=== PATIENT | female | born 1945 | race Caucasian/White ===

== ENCOUNTER 2017-06-26 10:50 | Outpatient (CLI) | payer MEDICARE, OTHER ==
[~2017-06-26 10:50] MED LIST: ASPIRIN-LOW81 MG ORAL; DIOVAN HCT 80-1 EACH ORAL; DIOVAN40 MG ORAL; LIPITOR20 MG ORAL; MULTIVITAMINS1 EAC2 ORAL; SYNTHROID50 MCG ORAL; TENORMIN25 MG ORAL
--- NOTE | 2017-06-26 11:50 | GI Progress Note ---
Assessment/Plan Problems: (1) Colonoscopy planned SNOMED: 911791690 (2) HTN (hypertension) ICD Codes: I10 - Essential (primary) hypertension SNOMED: 36646863 (3) Hypothyroidism ICD Codes: E03.9 - Hypothyroidism, unspecified SNOMED: 67209810 (4) HLD (hyperlipidemia) ICD Codes: E78.5 - Hyperlipidemia, unspecified SNOMED: 03525637 Status: stable Status Narrative Seen with Dr. Grullon. Assessment/Plan EGD/colonoscopy scheduled 07/09/17 - CLD & (Nulytely/Suprep/Movi-Prep) prep instructions given and acknowledged by patient. - NPO @ [place] day prior procedure explained. Labs to be drawn day of procedure >> CEA, CBC, Iron Panel, CA 19-9 Subjective Subjective weight loss of 8 lbs over 6-7 months Hx of elevated amylase appetite is good PCP had labs done April 2017 Breast CA 2015 s/p surgery denies N/V no severe constipation, has loose stools PCP is Dr. Moore, Dr. Bustos Objective T 98.1 BP 153/80 P 93 95 RA WT 117lbs General Appearance: WD/WN, no apparent distress, alert Cardiovascular: normal rate Respiratory/Chest: normal breath sounds, no respiratory distress Abdominal Exam: normal bowel sounds, non tender, soft Extremities: normal range of motion, non-tender Mabel Bonilla N.P. Jun 26, 2017 11:50
== END 2017-06-26 11:25 | disposition home or self-care (01) ==
LOC: PAN 10:50
DX: I10 Essential (primary) hypertension (principal); E03.9 Hypothyroidism, unspecified; E78.5 Hyperlipidemia, unspecified; R63.4 Abnormal weight loss; Z85.3 Personal history of malignant neoplasm of breast
CPT/HCPCS: 99212; 99285

== ENCOUNTER 2017-07-09 08:03 | Day surgery (SDC) | payer MEDICARE, OTHER ==
[~2017-07-09] VITALS: Ht 152.4 cm; Wt 53.5 kg
[2017-07-09] VITALS (10 sets, daily range): BP systolic 126–155; BP diastolic 69–86
--- NOTE | 2017-07-09 07:00 | Anethesia Preoperative Eval ---
Anesthesia Pre-op PMH/ROS General Date of Evaluation: Jul 09, 2017 Time of Evaluation: 06:58 Anesthesiologist: corky ASA Score: ASA 3 Mallampati Score Class I : Soft palate, uvula, fauces, pillars visible Class II: Soft palate, uvula, fauces visible Class III: Soft palate, base of uvula visible Class IV: Only hard plate visible Mallampati Classification: Class II Surgeon: ziyad Diagnosis: weight loss, r/o cancer Surgical Procedure: egd/ colonoscopy Anesthesia History: none Social History: smoking - nonsmoker Family History: no anesthesia problems Allergies: Coded Allergies: PENICILLINS (Verified Allergy, Severe, RASH, 03/28/13) ACETAMINOPHEN (Verified Adverse Reaction, Severe, NAUSEA, 03/28/13) HYDROCODONE (Verified Adverse Reaction, Severe, NAUSEA, 03/28/13) Past Medical History Cardiovascular: Reports: HTN, other - hypercholesterolemia Gastrointestinal/Genitourinary: Reports: other Neurologic/Psychiatric: Reports: depression/anxiety, other - poliomyelitis Endocrine: Reports: DM, hypothyroidism Anesthesia Pre-op Phys. Exam Physician Exam Constitutional: NAD Neurologic: CN 2-12 intact Cardiovascular: RRR Respiratory: CTA Gastrointestinal: S/NT/ND Airway Exam Mallampati Score: Class II MO: full Neck: short TMD: 2fb ROM: limited Anesthesia Pre-op A/P Risk Assessment & Plan Assessment: asa3 Plan: mac Status Change Before Surgery: No Pre-Antibiotics Drug: RUKHSANA Burnette Jul 09, 2017 07:00
[~2017-07-09 08:03] MED LIST changes: +Atropine Inj 1mg/10ml Syr IV PRN; +DiphenhydrAMINE 50mg/ml Inj IVP PRN; +Midazolam 2mg/2ml Inj IVP PRN; +fentaNYL 100 mcg/2 mL IV PRN
[2017-07-09] MEDS ORDERED: VITAMIN D2000 UNI2 PO (09:08)
[2017-07-09] MEDS ORDERED: DIOVAN40 MG ORAL (09:08)
[2017-07-09] MEDS ORDERED: ASPIR 8181 MG ORAL (09:08)
[2017-07-09] MEDS ORDERED: VITAMIN B COMP1 EAC2 ORAL (09:08)
--- NOTE | 2017-07-09 09:42 | Pre-Procedure Note/Attestation ---
Pre-Procedure Note/Attestation Complete Prior to Procedure Planned Procedure: not applicable Procedure Narrative: esophagogastroduodenoscopy and colonoscopy Indications for Procedure Pre-Operative Diagnosis: wt loss Attestation I attest that I discussed the nature of the procedure; its benefits; risks and complications; and alternatives (and the risks and benefits of such alternatives ), prior to the procedure, with the patient (or the patient's legal field sales representative). I attest that, if there was a reasonable possibility of needing a blood transfusion, the patient (or the patient's legal field sales representative) was given the [facility] standardized written summary, pursuant to the David Kellogg Blood Safety Act ([place] Health and Safety Code # 1645, as amended). I attest that I re-evaluated the patient just prior to the surgery and that there has been no change in the patient's H&P, except as documented below: JARED MCKEON Jul 09, 2017 09:42
--- NOTE | 2017-07-09 09:43 | Short Stay Surgery H&P ---
History of Present Illness History of Present Illness Chief Complaint see recent clinic consult note HPI Dana Correa is a 72 year old female who was admitted on for Weight Lose,R /O Cancer Patient History Allergies: Coded Allergies: PENICILLINS (Verified Allergy, Severe, RASH, 03/28/13) ACETAMINOPHEN (Verified Adverse Reaction, Severe, NAUSEA, 03/28/13) HYDROCODONE (Verified Adverse Reaction, Severe, NAUSEA, 03/28/13) PAST MEDICAL HISTORY: Past Surgeries: Social History: Medication History Scheduled Aspirin* (Aspir 81*), 81 MG ORAL DAILY, (Reported) Atenolol (Tenormin), 25 MG ORAL DAILY, (Reported) Atorvastatin Calcium* (Lipitor*), 20 MG ORAL BEDTIME, (Reported) Cholecalciferol (Vitamin D3) (Vitamin D), 2,000 UNIT PO DAILY, (Reported) Levothyroxine Sodium (Synthroid), 75 MCG ORAL DAILY, (Reported) Valsartan (Diovan), 40 MG ORAL DAILY, (Reported) Vitamin B Complex (Vitamin B Complex), 1 CAP ORAL DAILY, (Reported) Physical Exam Vital Signs Last Vital Signs Date Time Temp Pulse Resp B/P (MAP) Pulse Ox O2 Delivery O2 Flow Rate FiO2 07/09/17 09:26 98.6 70 16 144/75 95 Room Air Plan Attestation Are the patient's medical conditions optimized for surgery? JARED MCKEON Jul 09, 2017 09:43
[2017-07-09] MEDS ORDERED: Lidocaine 1% MPF 10mg/ml 5ml ONE (10:00)
[2017-07-09] MEDS ORDERED: LR 1000ml ONE (10:00)
[2017-07-09] MEDS ORDERED: Atropine Sulfate 0.4mg/ml inj ONE (10:00)
[2017-07-09] MEDS ORDERED: Propofol 200mg/20ml IV ONE (10:00)
--- NOTE | 2017-07-09 10:28 | Endoscopy Procedure Note ---
Endoscopy Procedure Note General Indication for Procedure: wt loss Procedures Performed: EGD, colonoscopy Operative Findings/Diagnosis: gastritis, diverticulosis Specimen: yes Pt Tolerated Procedure Well: Yes Estimated Blood Loss: none Anesthesia Anesthesiologist: lizz Anesthesia: MAC Inserted Devices Implant(s) used?: No Quality Quality of Bowel Preparation: Fair Did scope reach the cecum?: Yes Was there any complications?: No GI Core Measures 50 yrs or older w/o bx or poly: Yes 10yrs. F/U not recommended: Yes If not recommended, why?: Above average risk 10 yrs. F/U needed: Yes 18 years or older w/prev. colo: Yes <3yrs. since last colonoscopy: No JARED MCKEON Jul 09, 2017 10:28
--- NOTE | 2017-07-09 12:00 | Procedure Note ---
DATE OF PROCEDURE: 07/09/2017 SURGEON: Zackery Grullon M.D. ANESTHESIOLOGIST: Dr. Edwards. PROCEDURE: Upper endoscopy with biopsy and biopsy, colonoscopy. ANESTHESIA: Per Dr. Edwards. INSTRUMENT: Olympus adult flexible endoscope and colonoscope. INDICATION: Weight loss, screening colonoscopy evaluation. PROCEDURE: The procedure, risks, benefits, and possible consequences including hemorrhage, aspiration, perforation and infection, and alternative treatments were explained to the patient/legal guardian by Dr. Zackery Grullon and the patient/legal guardian understood and accepted these risks. After informed consent was obtained and the patient was adequately sedated, Olympus upper endoscope was advanced from mouth to second portion of duodenum and retroflexion was performed in the stomach. The gastroesophageal junction was found to be at about 38 cm from the incisors. There was no evidence of any esophagitis. In the stomach, there was evidence of diffuse gastritis. Random biopsies from antrum and body were obtained to rule out H. pylori infection. At this time, the upper endoscope was retrieved and the patient was turned over for colonoscopy. First, rectal exam was performed, which was positive for internal hemorrhoids. Then, the scope was advanced from the rectum into the cecum documented by appendiceal orifice, ileocecal valve, and upper quadrant palpation. The quality of prep was poor in the area of the cecum and the right colon. The quality of prep was mediocre. There was some semisolid greenish stool in that area which covered may be about 15% of the colonic mucosa. The rest of the exam was within normal limits. There was no evidence of obvious mass or polyp seen. The patient has evidence of moderate diverticulosis in the left colon. Retroflexion of rectum showed evidence of internal hemorrhoids. SUMMARY OF FINDINGS: 1. Gastritis. 2. Mediocre colonic prep. 3. Internal hemorrhoids. 4. Diverticulosis. RECOMMENDATIONS: 1. Follow up biopsies and treat accordingly. 2. The patient to follow up in the office for further workup of weight loss.. Zackery Grullon M.D. DR: Miko JOB#: [id number] CC: [facility]
--- NOTE | 2017-07-09 13:42 | 48 Hour Post Anesthesia Eval ---
Post Anesthesia Evaluation Procedure: egd/colonoscopy Date of Evaluation: Jul 09, 2017 Time of Evaluation: 10:49 Blood Pressure Systolic: 126 0: 81 Pulse Rate: 81 Respiratory Rate: 18 Temperature (Fahrenheit): 98.6 O2 Sat by Pulse Oximetry: 98 Airway: patent Nausea: No Vomiting: No Pain Intensity: 0 Hydration Status: adequate Cardiopulmonary Status: stable Mental Status/LOC: patient returned to baseline Post-Anesthesia Complications: none Follow-up care needed: N/A RUKHSANA VICK Jul 09, 2017 13:42
--- NOTE | 2017-07-09 13:42 | Immediate Post-Op Evaluation ---
Immediate Post-Op Evalulation Immediate Post-Op Evalulation Procedure: egd/colonoscopy Date of Evaluation: Jul 09, 2017 Time of Evaluation: 10:47 IV Fluids: 550ml 0.9ns Blood Products: none Estimated Blood Loss: negligible Blood Pressure Systolic: 145 Blood Pressure Diastolic: 86 Pulse Rate: 78 Respiratory Rate: 18 O2 Sat by Pulse Oximetry: 98 Temperature (Fahrenheit): 98.6 Pain Score (1-10): 0 Nausea: No Vomiting: No Complications none Patient Status: awake, reacts, patent Hydration Status: adequate Drug: RUKHSANA Burnette Jul 09, 2017 13:42
--- NOTE | 2017-07-10 08:31 | Cardiology Report ---
APPROVED REPORT EKG Measurement Heart [id number] LA [id number] Normal sinus rhythm Right bundle branch block Abnormal ECG
== END 2017-07-09 12:00 | disposition home or self-care (01) ==
LOC: GAS 08:03
DX: Z12.11 Encounter for screening for malignant neoplasm of colon (principal); K57.30 Diverticulosis of large intestine without perforation or abscess without bleeding; K29.50 Unspecified chronic gastritis without bleeding; K64.8 Other hemorrhoids; I45.10 Unspecified right bundle-branch block; R63.4 Abnormal weight loss; Z68.23 Body mass index [BMI] 23.0-23.9, adult; Z79.82 Long term (current) use of aspirin; Z88.0 Allergy status to penicillin; Z88.6 Allergy status to analgesic agent; I10 Essential (primary) hypertension; E78.00 Pure hypercholesterolemia, unspecified; F32.9 Major depressive disorder, single episode, unspecified; F41.9 Anxiety disorder, unspecified; E11.9 Type 2 diabetes mellitus without complications; E03.9 Hypothyroidism, unspecified
CPT/HCPCS: 43239; 93005; G0121; J0461; J2704; J7120; 94003; 94150

== ENCOUNTER 2017-07-26 13:38 | Outpatient (CLI) | payer MEDICARE, OTHER ==
[~2017-07-26 13:38] MED LIST changes: +ASPIR 8181 MG ORAL; -Atropine Inj 1mg/10ml Syr IV PRN; -DiphenhydrAMINE 50mg/ml Inj IVP PRN; -Midazolam 2mg/2ml Inj IVP PRN; +VITAMIN B COMP1 EAC2 ORAL; +VITAMIN D2000 UNI2 PO; -fentaNYL 100 mcg/2 mL IV PRN
--- NOTE | 2017-07-26 16:42 | GI Progress Note ---
Assessment/Plan Problems: (1) Weight loss ICD Codes: R63.4 - Abnormal weight loss SNOMED: 88704152, 563989448 (2) Hemorrhoids ICD Codes: K64.9 - Unspecified hemorrhoids SNOMED: 38241733 (3) Diverticulosis ICD Codes: K57.90 - Diverticulosis of intestine, part unspecified, without perforation or abscess without bleeding SNOMED: 12893278 (4) Gastritis ICD Codes: K29.70 - Gastritis, unspecified, without bleeding SNOMED: 3581772 Status: stable Status Narrative Seen with Dr. Grullon. Assessment/Plan s/p EGD/colonoscopy SUMMARY OF FINDINGS reviewed with patient: 1. Gastritis. 2. Mediocre colonic prep. 3. Internal hemorrhoids. 4. Diverticulosis. RECOMMENDATIONS: 1. Follow up biopsies and treat accordingly. >> negative for H. Pylori 2. The patient to follow up in the office for further workup of weight loss. >> pt weight stable will consider moore CT if patient continues to lose weight. RTC x 1 month Subjective Gastrointestinal/Abdominal: Reports: no symptoms Objective T 98.2 BP 143/82 P 84 94 RA General Appearance: WD/WN, no apparent distress, alert Cardiovascular: normal rate Respiratory/Chest: normal breath sounds, no respiratory distress Abdominal Exam: normal bowel sounds, non tender, soft Extremities: normal range of motion, non-tender Mabel Bonilla N.P. Jul 26, 2017 16:42
== END 2017-07-26 14:10 | disposition home or self-care (01) ==
LOC: PAN 13:38
DX: R63.4 Abnormal weight loss (principal); K64.9 Unspecified hemorrhoids; K57.90 Diverticulosis of intestine, part unspecified, without perforation or abscess without bleeding; K29.70 Gastritis, unspecified, without bleeding